=== PATIENT | male | born 1975 | race Asian ===

== ENCOUNTER 2021-01-25 16:50 | Inpatient (IN) | payer MEDICAID, OTHER ==
[~2021-01-25] VITALS: Ht 167.6 cm; Wt 90.8 kg
[2021-01-25] MEDS ORDERED: HALOPERIDOL LACTATE 5 MG/ML VIAL ONE (19:13)
[2021-01-25] MEDS ORDERED: DiphenhydrAMINE HCL 50 MG/ML VIAL ONE (19:13)
[2021-01-25] MEDS ORDERED: LORazepam 2 MG/ML VIAL ONE (19:13)
[2021-01-25] MEDS ORDERED: DiphenhydrAMINE HCL 50 MG/ML VIAL IM ONE (19:30)
[2021-01-25] MEDS ORDERED: HALOPERIDOL LACTATE 5 MG/ML VIAL IM ONE (19:30)
[2021-01-25] MEDS ORDERED: LORazepam 2 MG/ML VIAL IM ONE (19:30)
[2021-01-25 20:21] LABS: COVID AG,FIA SOURCE NASOPHARYNGEAL
[2021-01-25] MEDS ORDERED: HALOPERIDOL 5 MG TABLET PO PRN (21:00)
[2021-01-25] MEDS ORDERED: LORazepam 2 MG TABLET PO PRN (21:00)
[2021-01-25] MEDS ORDERED: ZOLPIDEM TARTRATE 10 MG TABLET PO PRN (21:00)
[2021-01-25 21:17] LABS: BASOPHILS % (AUTO) 0.4 % (0.0-2.0); EOSINOPHILS % (AUTO) 0.3 % (1.0-6.0); HEMATOCRIT 47.5 % (41-53); HEMOGLOBIN 15.4 g/dL (13.5-17.5); LYMPHOCYTES # (AUTO) 1.4 K/uL (1.0-4.8); LYMPHOCYTES % (AUTO) 16.8 % (22.0-44.0); MEAN CORPUSCULAR HEMOGLOBIN 30.1 pg (26.0-34.0); MEAN CORPUSCULAR HGB CONC 32.5 G/dL (31.0-37.0); MEAN CORPUSCULAR VOLUME 93 fL (80-100); MONOCYTES % (AUTO) 12.4 % (2.0-9.0); NEUTROPHILS # (AUTO) 5.8 K/uL (1.8-7.7); NEUTROPHILS % (AUTO) 70.1 % (40.0-70.0); PLATELET COUNT (AUTO) 185 K/uL (150-450); RED BLOOD CELL COUNT(AUTO) 5.12 MIL/uL (4.50-5.90); RED CELL DISTRIBUTION WIDTH 13.1 % (11.5-14.5)
[2021-01-25 21:22] LABS: ANION GAP 13 mmol/L (8-16); CALCIUM, TOTAL 8.5 mg/dL (8.8-10.5); CARBON DIOXIDE 25 mmol/L (22-29); CHLORIDE 100 mmol/L (98-107); CREATININE 1.15 mg/dL (0.60-1.30); GLOMERULAR FILTR. RATE CALC > 60 mL/min (>60); GLUCOSE,RANDOM 159 mg/dL (70-110); POTASSIUM 3.2 mmol/L (3.5-5.1); SODIUM SERUM 138 mmol/L (136-145); UREA NITROGEN, BLOOD 28 mg/dL (7-18)
[2021-01-25 21:29] LABS: ALANINE AMINOTRANSFERASE 37 U/L (12-78); ALBUMIN 4.2 g/dL (3.4-5.0); ALKALINE PHOSPHATASE 58 U/L (46-116); ASPARTATE AMINOTRANSFERASE 34 U/L (15-37); BILIRUBIN,TOTAL 1.2 mg/dL (0.1-1.0); TOTAL PROTEIN, SERUM 6.8 g/dL (6.4-8.2)
[2021-01-25] MEDS ORDERED: POTASSIUM CHLORIDE 10% 40 MEQ/30 ML LIQUID UDCUP PO ONE (22:30)
[2021-01-26 01:15] VITALS: BP 125/67
[2021-01-26 06:52] LABS: CHOL/HDL RATIO 3.2 (4.2-7.3)
[2021-01-26] MEDS ORDERED: PETROLATUM,WHITE 28 GM JELLY TP PRN (07:15)
[2021-01-26] MEDS ORDERED: ACETAMINOPHEN 325 MG TABLET PO PRN (07:15)
[2021-01-26] MEDS ORDERED: MAGNESIUM HYDROXIDE SUSPENSION 30 ML UDCUP PO PRN (07:15)
[2021-01-26] MEDS ORDERED: NICOTINE 14 MG/24 HOUR PATCH TD PRN (07:15)
[2021-01-26] MEDS ORDERED: MAG HYDROX/AL HYDROX/SIMETH ES 30 ML SUSPENSION UDCUP PO PRN (07:15)
[2021-01-26] MEDS ORDERED: LOPERAMIDE HCL 2 MG CAPSULE PO PRN (07:15)
[2021-01-26] MEDS ORDERED: ONDANSETRON HCL 4 MG TABLET PO PRN (07:15)
[2021-01-26] MEDS ORDERED: CloNIDine HCL 0.1 MG TABLET PO PRN (07:15)
[2021-01-26] MEDS ORDERED: ALBUTEROL SULFATE HFA 90 MCG/PUFF 8 GM INHALER IH PRN (07:15)
[2021-01-26] MEDS ORDERED: DOCUSATE SODIUM 100 MG CAPSULE PO PRN (07:15)
[2021-01-26] MEDS ORDERED: GuaiFENesin/D-METHORPHAN [SUGAR-FREE] 200-20MG/10 ML SYRUP UDCUP PO PRN (07:15)
[2021-01-26 16:25] VITALS: BP 139/83
[2021-01-26] MEDS: OLANZapine 10 MG TABLET PO SCH (17:00)
[2021-01-27 08:07] VITALS: BP 152/99
[2021-01-27] MEDS: OLANZapine 10 MG TABLET PO SCH ×2 (11:45→17:00)
[2021-01-27] MEDS ORDERED: DEXTROSE 50%-WATER 25 GM/50 ML SYRINGE IVP PRN (13:45)
[2021-01-27 16:00] VITALS: BP 124/75
[2021-01-27 17:01] LABS: GLUCOMETER DEV NAME(LOC) 3E.C; GLUCOSE,POINT OF CARE 168 MG/DL (70-110)
[2021-01-27] MEDS: MetFORMIN HCL 500 MG TABLET PO SCH (17:30)
[2021-01-28] MEDS: MetFORMIN HCL 500 MG TABLET PO SCH ×3 (06:35→17:47)
[2021-01-28 08:33] VITALS: BP 128/77
[2021-01-28] MEDS: OLANZapine 10 MG TABLET PO SCH ×4 (09:00→17:47)
[2021-01-29] MEDS: MetFORMIN HCL 500 MG TABLET PO SCH ×2 (06:49→17:30)
[2021-01-29] MEDS: OLANZapine 10 MG TABLET PO SCH ×2 (08:46→17:44)
[2021-01-29 16:33] VITALS: BP 114/67
[2021-01-30] MEDS: MetFORMIN HCL 500 MG TABLET PO SCH ×2 (07:07→16:11)
[2021-01-30 08:00] VITALS: BP 165/84
[2021-01-30] MEDS: OLANZapine 10 MG TABLET PO SCH ×3 (09:00→16:11)
[2021-01-30 16:10] VITALS: BP 124/84
[2021-01-31] MEDS: MetFORMIN HCL 500 MG TABLET PO SCH ×2 (06:52→17:30)
[2021-01-31 08:52] VITALS: BP 170/97
[2021-01-31] MEDS: OLANZapine 10 MG TABLET PO SCH ×2 (09:11→16:13)
[2021-01-31 16:48] VITALS: BP 128/75
[2021-02-01] MEDS: MetFORMIN HCL 500 MG TABLET PO SCH ×3 (07:30→17:30)
[2021-02-01 08:00] VITALS: BP 158/99
[2021-02-01] MEDS: OLANZapine 10 MG TABLET PO SCH ×3 (08:19→17:00)
[2021-02-01 16:00] VITALS: BP 136/82
[2021-02-02] MEDS: MetFORMIN HCL 500 MG TABLET PO SCH ×2 (07:30→17:30)
[2021-02-02 08:00] VITALS: BP 169/98
[2021-02-02] MEDS: OLANZapine 10 MG TABLET PO SCH ×2 (09:00→16:39)
[2021-02-02 14:11] LABS: COVID AG,FIA SOURCE NASOPHARYNGEAL
[2021-02-02 16:03] VITALS: BP 150/97
[2021-02-03] MEDS: MetFORMIN HCL 500 MG TABLET PO SCH ×2 (06:40→17:30)
[2021-02-03 08:53] VITALS: BP 152/92
[2021-02-03] MEDS: OLANZapine 10 MG TABLET PO SCH ×2 (09:00→17:00)
[2021-02-03 16:01] VITALS: BP 166/100
[2021-02-03] MEDS: AmLODIPine BESYLATE 5 MG TABLET PO SCH (16:14)
[2021-02-04 04:07] VITALS: BP 150/98
[2021-02-04] MEDS: MetFORMIN HCL 500 MG TABLET PO SCH ×3 (06:32→16:11)
[2021-02-04 08:41] VITALS: BP 153/96
[2021-02-04] MEDS: OLANZapine 10 MG TABLET PO SCH ×2 (09:00→16:09)
[2021-02-04] MEDS: AmLODIPine BESYLATE 5 MG TABLET PO SCH (09:00)
[2021-02-04] MEDS: DIVALPROEX SODIUM 500 MG DR TABLET PO SCH (16:12)
[2021-02-04 17:19] VITALS: BP 136/86
[2021-02-05 05:53] VITALS: BP 142/88
[2021-02-05] MEDS: MetFORMIN HCL 500 MG TABLET PO SCH ×2 (06:43→17:30)
[2021-02-05 08:00] VITALS: BP 159/90
[2021-02-05] MEDS: AmLODIPine BESYLATE 5 MG TABLET PO SCH (09:13)
[2021-02-05] MEDS: OLANZapine 10 MG TABLET PO SCH ×2 (09:13→16:03)
[2021-02-05] MEDS: DIVALPROEX SODIUM 500 MG DR TABLET PO SCH ×2 (09:13→16:04)
[2021-02-05 16:48] VITALS: BP 146/83
[2021-02-06 03:44] VITALS: BP 135/99
[2021-02-06] MEDS: MetFORMIN HCL 500 MG TABLET PO SCH ×2 (07:10→17:30)
[2021-02-06] MEDS: OLANZapine 10 MG TABLET PO SCH ×2 (07:58→16:10)
[2021-02-06] MEDS: DIVALPROEX SODIUM 500 MG DR TABLET PO SCH ×2 (07:59→16:10)
[2021-02-06] MEDS: AmLODIPine BESYLATE 5 MG TABLET PO SCH (07:59)
[2021-02-06 08:00] VITALS: BP 149/99
[2021-02-06 16:15] VITALS: BP 138/86
[2021-02-06] MEDS: IBUPROFEN 400 MG TABLET PO PRN (16:26)
[2021-02-07 01:48] VITALS: BP 135/78
[2021-02-07] MEDS: IBUPROFEN 400 MG TABLET PO PRN ×3 (01:48→10:03)
[2021-02-07] MEDS: MetFORMIN HCL 500 MG TABLET PO SCH ×2 (07:00→17:30)
[2021-02-07] MEDS: OLANZapine 10 MG TABLET PO SCH ×2 (08:09→16:07)
[2021-02-07] MEDS: DIVALPROEX SODIUM 500 MG DR TABLET PO SCH ×2 (08:09→16:07)
[2021-02-07] MEDS: AmLODIPine BESYLATE 5 MG TABLET PO SCH (08:09)
[2021-02-07 08:43] VITALS: BP 159/95
[2021-02-07 16:06] VITALS: BP 159/90
[2021-02-07 16:24] LABS: GLUCOMETER DEV NAME(LOC) 3E.C; GLUCOSE,POINT OF CARE 331 MG/DL (70-110)
[2021-02-07] MEDS: INSULIN LISPRO 100 UNITS/ML SQ PRN ×2 (16:47→20:46)
[2021-02-07 20:53] LABS: GLUCOMETER DEV NAME(LOC) 3E.C; GLUCOSE,POINT OF CARE 231 MG/DL (70-110)
[2021-02-08 06:03] LABS: GLUCOMETER DEV NAME(LOC) 3E.C; GLUCOSE,POINT OF CARE 374 MG/DL (70-110)
[2021-02-08 06:08] VITALS: BP 146/88
[2021-02-08] MEDS: IBUPROFEN 400 MG TABLET PO PRN ×2 (06:12→15:49)
[2021-02-08] MEDS: MetFORMIN HCL 500 MG TABLET PO SCH ×2 (06:31→17:01)
[2021-02-08] MEDS: INSULIN LISPRO 100 UNITS/ML SQ PRN ×4 (06:34→21:09)
[2021-02-08 08:00] VITALS: BP 153/83
[2021-02-08] MEDS: DIVALPROEX SODIUM 500 MG DR TABLET PO SCH ×2 (08:22→16:20)
[2021-02-08] MEDS: AmLODIPine BESYLATE 5 MG TABLET PO SCH (08:22)
[2021-02-08] MEDS: OLANZapine 10 MG TABLET PO SCH ×2 (08:22→16:20)
[2021-02-08 11:26] LABS: GLUCOMETER DEV NAME(LOC) 3E.C; GLUCOSE,POINT OF CARE 244 MG/DL (70-110)
[2021-02-08 15:51] VITALS: BP 166/89
[2021-02-08 16:00] VITALS: BP 166/89
[2021-02-08 17:10] LABS: GLUCOMETER DEV NAME(LOC) 3E.C; GLUCOSE,POINT OF CARE 286 MG/DL (70-110)
[2021-02-08 21:16] LABS: GLUCOMETER DEV NAME(LOC) 3E.C; GLUCOSE,POINT OF CARE 216 MG/DL (70-110)
[2021-02-09 05:47] LABS: GLUCOMETER DEV NAME(LOC) 3E.C; GLUCOSE,POINT OF CARE 186 MG/DL (70-110)
[2021-02-09 06:20] VITALS: BP 146/86
[2021-02-09] MEDS: IBUPROFEN 400 MG TABLET PO PRN ×2 (06:23→16:13)
[2021-02-09] MEDS: MetFORMIN HCL 500 MG TABLET PO SCH ×2 (06:32→16:15)
[2021-02-09] MEDS: INSULIN LISPRO 100 UNITS/ML SQ PRN ×4 (06:34→20:52)
[2021-02-09] MEDS: OLANZapine 10 MG TABLET PO SCH ×2 (07:52→16:13)
[2021-02-09] MEDS: AmLODIPine BESYLATE 5 MG TABLET PO SCH (07:52)
[2021-02-09] MEDS: DIVALPROEX SODIUM 500 MG DR TABLET PO SCH ×2 (07:52→16:13)
[2021-02-09 08:28] VITALS: BP 135/92
[2021-02-09 11:19] LABS: GLUCOMETER DEV NAME(LOC) 3E.C; GLUCOSE,POINT OF CARE 289 MG/DL (70-110)
[2021-02-09 16:13] VITALS: BP 147/77
[2021-02-09 16:16] VITALS: BP 147/77
[2021-02-09 16:27] LABS: GLUCOMETER DEV NAME(LOC) 3E.C; GLUCOSE,POINT OF CARE 305 MG/DL (70-110)
[2021-02-09 20:32] LABS: GLUCOMETER DEV NAME(LOC) 3E.C; GLUCOSE,POINT OF CARE 220 MG/DL (70-110)
[2021-02-10 04:02] VITALS: BP 136/81
[2021-02-10] MEDS: IBUPROFEN 400 MG TABLET PO PRN ×2 (04:02→17:04)
[2021-02-10 06:12] LABS: GLUCOMETER DEV NAME(LOC) 3E.C; GLUCOSE,POINT OF CARE 251 MG/DL (70-110)
[2021-02-10] MEDS: INSULIN LISPRO 100 UNITS/ML SQ PRN ×4 (06:36→21:12)
[2021-02-10] MEDS: MetFORMIN HCL 500 MG TABLET PO SCH ×2 (06:36→16:43)
[2021-02-10 08:00] VITALS: BP 159/90
[2021-02-10] MEDS: AmLODIPine BESYLATE 5 MG TABLET PO SCH (08:05)
[2021-02-10] MEDS: OLANZapine 10 MG TABLET PO SCH ×2 (08:05→16:43)
[2021-02-10] MEDS: DIVALPROEX SODIUM 500 MG DR TABLET PO SCH ×2 (08:05→16:43)
[2021-02-10 12:03] LABS: GLUCOMETER DEV NAME(LOC) 3E.C; GLUCOSE,POINT OF CARE 291 MG/DL (70-110)
[2021-02-10 16:00] VITALS: BP 142/80
[2021-02-10 16:10] VITALS: BP 142/80
[2021-02-10 16:33] LABS: GLUCOMETER DEV NAME(LOC) 3E.C; GLUCOSE,POINT OF CARE 261 MG/DL (70-110)
[2021-02-10 21:15] LABS: GLUCOMETER DEV NAME(LOC) 3E.C; GLUCOSE,POINT OF CARE 218 MG/DL (70-110)
[2021-02-11 05:20] VITALS: BP 152/91
[2021-02-11] MEDS: IBUPROFEN 400 MG TABLET PO PRN (05:20)
[2021-02-11 05:56] LABS: GLUCOMETER DEV NAME(LOC) 3E.C; GLUCOSE,POINT OF CARE 265 MG/DL (70-110)
[2021-02-11] MEDS: MetFORMIN HCL 500 MG TABLET PO SCH (07:02)
[2021-02-11] MEDS: INSULIN LISPRO 100 UNITS/ML SQ PRN ×2 (07:05→12:32)
[2021-02-11] MEDS: OLANZapine 10 MG TABLET PO SCH (08:10)
[2021-02-11] MEDS: DIVALPROEX SODIUM 500 MG DR TABLET PO SCH (08:10)
[2021-02-11] MEDS: AmLODIPine BESYLATE 5 MG TABLET PO SCH (08:10)
[2021-02-11 08:17] VITALS: BP 146/92
[2021-02-11 09:43] LABS: COVID AG,FIA SOURCE NASOPHARYNGEAL
[2021-02-11] MEDS ORDERED: DIVA-112 PO (10:09)
[2021-02-11] MEDS ORDERED: OLAN10TA74 PO (10:10)
[2021-02-11] MEDS ORDERED: METF-960 PO (10:11)
[2021-02-11] MEDS ORDERED: AMLO-257 PO (10:11)
[2021-02-11 12:04] LABS: GLUCOMETER DEV NAME(LOC) 3E.C; GLUCOSE,POINT OF CARE 230 MG/DL (70-110)
== END 2021-02-11 12:50 | disposition home or self-care (01) | DRG 750 ==
LOC: EMS 16:52 → 3EC 20:56
PROVIDERS: ADMIT Psychiatry & Neurology Child & Adolescent Psychiatry; ATTEND Psychiatry & Neurology Child & Adolescent Psychiatry
DX: F20.9 Schizophrenia, unspecified (principal); E11.9 Type 2 diabetes mellitus without complications; E86.0 Dehydration; F41.9 Anxiety disorder, unspecified; E66.9 Obesity, unspecified; Z20.822 Contact with and (suspected) exposure to COVID-19; E87.6 Hypokalemia; Z87.891 Personal history of nicotine dependence; Z91.14 Patient's other noncompliance with medication regimen; Z68.33 Body mass index [BMI] 33.0-33.9, adult
CPT/HCPCS: 80053; 80061; 82962; 83036; 84132; 85025; 87426; 99291; G0480; J1200; J1630; J2060